=== PATIENT | female | born 1995 | race Two or more races ===

== ENCOUNTER 2020-07-29 13:53 | Emergency (ER) | payer OTHER ==
[~2020-07-29] VITALS: Ht 170.2 cm; Wt 93.4 kg
[2020-07-29 15:50] LABS: Urine Bacteria NONE SEEN /hpf (None Seen); Urine Blood Negative /uL (Negative); Urine Mucus FEW (None Seen); Urine Specific Gravity 1.023 (1.001-1.035); Urine WBC 48 /hpf (0 - 5)
[2020-07-29 17:51] VITALS: BP 111/64
== END 2020-07-29 18:04 | disposition home or self-care (01) ==
LOC: ER 13:53
DX: O20.0 Threatened abortion (principal)
CPT/HCPCS: 36415; 76801; 81001; 81025; 84702

== ENCOUNTER 2020-08-27 17:05 | Emergency (ER) | payer OTHER ==
[~2020-08-27] VITALS: Ht 170.2 cm; Wt 92.1 kg
[2020-08-27 17:21] VITALS: BP 108/72
[2020-08-27 18:09] LABS: Urine Bacteria NONE SEEN /hpf (None Seen); Urine Blood Negative /uL (Negative); Urine Mucus FEW (None Seen); Urine Specific Gravity 1.023 (1.001-1.035); Urine WBC 16 /hpf (0 - 5); Urine WBC Clumps PRESENT /hpf (None Seen)
== END 2020-08-27 23:28 | disposition home or self-care (01) ==
LOC: ER 17:05
DX: N83.02 Follicular cyst of left ovary (principal); N83.01 Follicular cyst of right ovary
CPT/HCPCS: 36415; 76830; 76856; 81001; 84702